=== PATIENT | male | born 1995 | race African-American/Black ===

== ENCOUNTER 2019-05-14 16:04 | Emergency (ER) | payer BC, SELFPAY ==
[2019-05-14 16:30] VITALS: BP 132/70; PULSE 55; RESP 16; TEMP 37.1; O2SAT 100
--- NOTE | 2019-05-14 16:50 | ED.GENADULT ---
HPI - General Adult General Chief complaint: Urogenital-Male Stated complaint: STD check Time Seen by Provider: 05/14/19 16:50 Source: patient Mode of arrival: ambulatory Limitations: no limitations History of Present Illness HPI narrative: 23-year-old male patient presents to the [facility] with request for STD check. Patient states that he has been having some burning with urination every once in a while for the past 2 weeks. Patient states that he is sexually active with women only and only does vaginal oral sex. Denies any anal sex. Patient states that he does use condoms but not every time. Denies any lesions or sores to the penis area. Denies any pain to the testicle area. Denies any penile discharge. Denies any rashes that he is aware of. Denies any recent fevers, chills, body aches or cold symptoms. Patient denies any nausea, vomiting or diarrhea. Review of Systems Review of Systems: Narrative: CONSTITUTIONAL: Denies fever, chills, or sweats. EYES: Denies visual changes, redness, or discharge. ENT: Denies rhinorrhea, congestion, sore throat, or otalgia. CARDIOVASCULAR: Denies chest pain, palpitations, or edema. RESPIRATORY: Denies cough or dyspnea. GASTROINTESTINAL: Denies abdominal pain, nausea, vomiting, or diarrhea. GENITOURINARY: Denies dysuria or hematuria. Positive pain with urination x2 weeks SKIN: Denies rash or itching. MUSCULOSKELETAL: Denies back pain, joint pain, or myalgia. NEUROLOGIC: Denies headache, numbness, or weakness. PSYCHIATRIC: Denies anxiety or depression. PMFSH Comments At the time of my signature I agree with nursing past medical history, surgical, social, and family history. There is no relevant family history pertinent to the presenting complaint. Exam Narrative: Exam Narrative: GENERAL: Well-appearing, well-nourished, and in no acute distress. HEAD: Normocephalic, atraumatic. EYES: PERRLA and EOMI. ENT: Nares clear, no rhinorrhea or epistaxis. Mucous membranes moist. NECK: Supple. No lymphadenopathy CHEST: Clear to auscultation. No respiratory distress. HEART: Regular rate and rhythm. No murmur heard. Normal peripheral pulses. ABDOMEN: Soft, nontender, nondistended, normal active bowel sounds. EXTREMITIES: Normal range of motion. No edema. No CVA tenderness on percussion. : Deferred SKIN: Warm, dry, no rash. NEURO: No focal deficits. Alert and oriented x3. Course Vital Signs Vital signs: Vital Signs Temperature 37.1 C 05/14/19 16:30 Pulse Rate 55 L 05/14/19 16:30 Respiratory Rate 16 05/14/19 16:30 Blood Pressure 132/70 05/14/19 16:30 Pulse Oximetry 100 05/14/19 16:30 Temperature 37.1 C 05/14/19 16:30 Pulse Rate 55 L 05/14/19 16:30 Respiratory Rate 16 05/14/19 16:30 Blood Pressure 132/70 05/14/19 16:30 Pulse Oximetry 100 05/14/19 16:30 Vital signs reviewed. Medical Decision Making Differential Diagnosis Differential Diagnosis: Differential diagnosis: Gonorrhea, chlamydia, Trichomonas, bacterial vaginosis, herpes, HIV, yeast infection, urinary tract infection. Discussed with patient that since he is symptomatic and he is coming in with complaints of possible STDs we are can go ahead and treat him for STDs today with 2 antibiotics in the clinic and I will also send an antibiotic home with him to treat any possible trichomonas. Discussed with him that after he receives treatment today is very important that he does not engage in any type of sexual activity for at least 7 days. Discussed with patient that we will send his urine off to the lab for further testing and he will get a phone call regardless if he is negative or positive. Discussed with patient I am also can send him home with some information [facility] for further testing. Patient verbalized understanding denies any other questions or concerns at this time. Vital Signs Vital Signs: Vital Signs Temperature 37.1 C 05/14/19 16:30 Pu
[2019-05-14] MEDS: AZITHROMYCIN 250 MG TABLET 1000 MG PO (17:02)
[2019-05-14] MEDS: cefTRIAXone 250 MG VIAL IM (17:02)
[2019-05-14] MEDS: LIDOCAINE HCL 1% LOCAL INJ 20 ML VIAL IM (17:03)
== END 2019-05-14 17:18 | disposition home or self-care (01) ==
PROVIDERS: Emergency Provider Nurse Practitioner Family
DX: Z20.2 Contact with and (suspected) exposure to infections with a predominantly sexual mode of transmission (principal)
CPT/HCPCS: 81003; 87491; 87591; 99203; A9270; G0463; J0696